=== PATIENT | male | born 1985 | race Caucasian/White ===

== ENCOUNTER 2019-07-30 07:52 | Emergency (ER) | payer OTHER ==
[~2019-07-30] VITALS: Ht 185.4 cm; Wt 70.4 kg
[2019-07-30] MEDS ORDERED: NS IV 1000 ML 1,000 ML IV SCH (08:15)
[2019-07-30] MEDS ORDERED: KETOROLAC 30 MG/ML VIAL IVP ONE (08:15)
[2019-07-30] MEDS ORDERED: ONDANSETRON 4 MG/2 ML (SDV) Z0FRAN IVP ONE (08:15)
[2019-07-30 08:24] LABS: HEMATOCRIT 42 % (40-54); MEAN CORPUSCULAR HEMOGLOBIN 30 PG (25-34); WHITE BLOOD COUNT 7.5 10^3/uL (4.3-11.0)
[2019-07-30 08:25] LABS: BASOPHILS # (AUTO) 0.1 10^3/uL (0.0-0.1); BASOPHILS % (AUTO) 1 % (0-10); EOSINOPHILS # (AUTO) 0.1 10^3/uL (0.0-0.3); EOSINOPHILS % (AUTO) 1 % (0-10); LYMPHOCYTES # (AUTO) 3.3 X 10^3 (1.0-4.0); LYMPHOCYTES % (AUTO) 44 % (12-44); MEAN CORPUSCULAR HGB CONC 34 G/DL (32-36); MEAN CORPUSCULAR VOLUME 91 FL (80-99); MEAN PLATELET VOLUME 9.9 FL (7.4-10.4); MONOCYTES # (AUTO) 0.7 X 10^3 (0.0-1.0); MONOCYTES % (AUTO) 9 % (0-12); NEUTROPHILS # (AUTO) 3.3 X 10^3 (1.8-7.8); NEUTROPHILS % (AUTO) 45 % (42-75); PLATELET COUNT 297 10^3/uL (130-400); RED CELL DISTRIBUTION WIDTH 12.9 % (10.0-14.5)
[2019-07-30 08:25] LABS: CLARITY,URINE CLEAR; COLOR,URINE YELLOW
[2019-07-30 08:26] LABS: BACTERIA,URINE NEGATIVE /HPF; BILIRUBIN,URINE NEGATIVE (NEGATIVE); GLUCOSE, URINE (UA) NEGATIVE (NEGATIVE); KETONES,URINE NEGATIVE (NEGATIVE); LEUKOCYTE ESTERASE ,URINE NEGATIVE (NEGATIVE); NITRITE,URINE NEGATIVE (NEGATIVE); PH,URINE 7.5 (5-9); PROTEIN,URINE NEGATIVE (NEGATIVE); RBC,URINE 25-50 /HPF; WBC,URINE RARE /HPF
--- NOTE | 2019-07-30 08:38 | Diagnostic Imaging Report ---
PROCEDURE: CT urinary tract, rule out kidney stone. TECHNIQUE: Multiple contiguous axial images were obtained through the abdomen and pelvis without the use of intravenous contrast. Auto Exposure Controls were utilized during the CT exam to meet ALARA standards for radiation dose reduction. INDICATION: Pain in the lower left abdomen and right abdomen radiating to the back. History of kidney stones. COMPARISON: None. FINDINGS: The lung bases are clear. The heart is normal in size. There is no pericardial effusion. The liver demonstrates no focal lesions. The spleen appears normal. The pancreas is normal. The adrenal glands appear normal. There is moderate right hydroureteronephrosis caused by an obstructing 3 mm calculus at the right ureterovesicular junction. There is a nonobstructing calculus in the inferior right kidney measuring 3 mm as well. The left kidney demonstrates no calculi. Multiple phleboliths are seen in the pelvis. The urinary bladder is decompressed. The bowel loops are nondistended without obstruction. The appendix is normal. No free fluid or free air is seen. There are nonspecific irregular calcifications in the prostate gland. The aorta is normal in caliber. Scattered mesenteric lymph nodes are seen which do not appear enlarged. No acute osseous abnormality is seen. IMPRESSION: Obstructing 3 mm calculus at the right ureterovesicular junction causing moderate right hydroureteronephrosis. Dictated by: Dictated on workstation # [id number]
[2019-07-30 08:40] LABS: BUN/CREATININE RATIO 15; CARBON DIOXIDE 23 MMOL/L (21-32); CHLORIDE 101 MMOL/L (98-107); CREATININE SERUM 1.08 MG/DL (0.60-1.30); GFR ESTIMATED > 60; SODIUM 139 MMOL/L (135-145)
[2019-07-30 08:41] LABS: ALANINE AMINOTRANSFERASE 20 U/L (0-55); ALBUMIN 4.9 GM/DL (3.2-4.5); ALKALINE PHOSPHATASE 70 U/L (40-136); BILIRUBIN,TOTAL 0.6 MG/DL (0.1-1.0); CALCIUM 9.2 MG/DL (8.5-10.1); GLUCOSE 138 MG/DL (70-105)
[2019-07-30] MEDS ORDERED: fentaNYL INJECTION 100 MCG/2 ML AMP IVP ONE (08:45)
[2019-07-30] MEDS ORDERED: HYDR-83 PO (08:50)
[2019-07-30] MEDS ORDERED: TMSL.4C PO (08:50)
--- NOTE | 2019-07-30 08:51 | ED Back Pain ---
General Chief Complaint: Back Problems Stated Complaint: RT FLANK/ABD PAIN Nursing Triage Note: Patient presents to the ED with c/o of severe right flank pain and right lower abdominal pain. He states that the pain woke him up around 6am this morning. He reports nausea and severe pain. He states he has had kidney stones in the past but never anything this severe. Nursing Sepsis Screen: No Definite Risk History of Present Illness Date Seen by Provider: Jul 30, 2019 Time Seen by Provider: 08:10 Initial Comments Sudden onset of Right back and flank pain this morning when he awoke. Hx of kidney stones, but this feels different. Pain sudden and severe. Associated nausea and vomiting. Otherwise, no recent illness. No sick contacts. No recent travel. Pain radiates from back to lower abdomen- primarily R sided. No pain w urination or observed blood in urine. Allergies and Home Medications Allergies Coded Allergies: No Known Drug Allergies (Unverified , 07/30/19) Home Medications Hydrocodone/Acetaminophen 1 Each Tablet, 1 EACH PO Q4H Prescribed by: JOHN GOMEZ on 07/30/19 0850 Tamsulosin HCl 0.4 Mg Cap, 0.4 MG PO DAILY Prescribed by: JOHN GOMEZ on 07/30/19 0850 Patient Home Medication List Home Medication List Reviewed: Yes Review of Systems Constitutional: see HPI; No fever, No malaise, No weakness Respiratory: No cough, No short of breath Cardiovascular: No chest pain, No palpitations Gastrointestinal: abdominal pain; No constipation, No diarrhea, No loss of appetite; nausea, vomiting Genitourinary: see HPI; No decreased output, No dysuria, No frequency, No hematuria, No incontinence, No nocturia, No pain Musculoskeletal: back pain; No joint pain Skin: no symptoms reported Past Mruhnfu-Cpkxbw-Iorrmn Hx Past Med/Social Hx: Reviewed Nursing Past Med/Soc Hx Patient Social History Alcohol Use: Denies Use Recreational Drug Use: No Smoking Status: Never a Smoker 2nd Hand Smoke Exposure: No Recent Foreign Travel: No Contact w/Someone Who Travel: No Recent Infectious Disease Expo: No Recent Hopitalizations: No Physical Abuse: No Sexual Abuse: No Mistreated: No Fear: No Seasonal Allergies Seasonal Allergies: No Past Medical History Surgeries: No Respiratory: No Cardiac: No Neurological: No Genitourinary: Yes Kidney Stones Gastrointestinal: No Musculoskeletal: No Endocrine: No HEENT: No Cancer: No Psychosocial: No Integumentary: No Blood Disorders: No Physical Exam Vital Signs Vital Signs - First Documented 07/30/19 07:59 Temp 36.7 Pulse 58 Resp 20 B/P (MAP) 133/82 (99) Pulse Ox 100 O2 Delivery Room Air Capillary Refill : Less Than 3 Seconds Height, Weight, BMI Height: '" Weight: lbs. oz. kg; 20.00 BMI Method: General Appearance: Mild Distress (pain) Cardiovascular: Regular Rate, Rhythm, No Edema, No Gallop Respiratory: Chest Non Tender, Lungs Clear Gastrointestinal: Non Tender, Soft; No Distended, No Guarding Back: No Vertebral Tenderness, CVA Tenderness (R); No Decreased Range of Motion, No Vertebral Tenderness Neurologic/Psychiatric: Alert, Oriented x3 Progress/Results/Core Measures Results/Orders Lab Results Laboratory Tests Test 07/30/19 08:08 07/30/19 08:10 Range/Units White Blood Count 7.5 4.3-11.0 10^3/uL Red Blood Count 4.61 4.35-5.85 10^6/uL Hemoglobin 14.0 13.3-17.7 G/DL Hematocrit 42 40-54 % Mean Corpuscular Volume 91 80-99 FL Mean Corpuscular Hemoglobin 30 25-34 PG Mean Corpuscular Hemoglobin Concent 34 32-36 G/DL Red Cell Distribution Width 12.9 10.0-14.5 % Platelet Count 297 130-400 10^3/uL Mean Platelet Volume 9.9 7.4-10.4 FL Neutrophils (%) (Auto) 45 42-75 % Lymphocytes (%) (Auto) 44 12-44 % Monocytes (%) (Auto) 9 0-12 % Eosinophils (%) (Auto) 1 0-10 % Basophils (%) (Auto) 1 0-10 % Neutrophils # (Auto) 3.3 1.8-7.8 X 10^3 Lymphocytes # (Auto) 3.3 1.0-4.0 X 10^3 Monocytes # (Auto) 0.7 0.0-1.0 X 10^3 Eosinophils # (Auto) 0.1 0.0-0.3 10^3/uL Basophils # (Auto) 0.1 0.0-0.1 10^3/uL Sodium Level 139 135-145 MMOL/L Potassium Level 4.0 3.6-5.0 MMOL/L Chloride Level 101 98-107 MMOL/L Carbon Dioxide Level 23 21-32 MMOL/L Anion Gap 15 H 5-14 MMOL/L Blood Urea Nitrogen 16 7-18 MG/DL Creatinine 1.08 0.60-1.30 MG/DL Estimat Glomerular Filtration Rate > 60 BUN/Creatinine Ratio 15 Glucose Level 138 H 70-105 MG/DL Calcium Level 9.2 8.5-10.1 MG/DL Corrected Calcium 8.5-10.1 MG/DL Total Bilirubin 0.6 0.1-1.0 MG/DL Aspartate Amino Transf (AST/SGOT) 23 5-34 U/L Alanine Aminotransferase (ALT/SGPT) 20 0-55 U/L Alkaline Phosphatase 70 40-136 U/L Total Protein 7.0 6.4-8.2 GM/DL Albumin 4.9 H 3.2-4.5 GM/DL Urine Color YELLOW Urine Clarity CLEAR Urine pH 7.5 5-9 Urine Specific Thornton 1.020 1.016-1.022 Urine Protein NEGATIVE NEGATIVE Urine Glucose (UA) NEGATIVE NEGATIVE Urine Ketones NEGATIVE NEGATIVE Urine Nitrite NEGATIVE NEGATIVE Urine Bilirubin NEGATIVE NEGATIVE Urine Urobilinogen 0.2 < = 1.0 MG/DL Urine Leukocyte Esterase NEGATIVE NEGATIVE Urine RBC (Auto) 3+ H NEGATIVE Urine RBC 25-50 H /HPF Urine WBC RARE /HPF Urine Squamous Epithelial Cells NONE /HPF Urine Crystals NONE /LPF Urine Bacteria NEGATIVE /HPF Urine Casts NONE /LPF Urine Mucus SMALL H /LPF Urine Culture Indicated NO My Orders Orders - JOHN GOMEZ DO Ed Iv/Invasive Line Start (07/30/19 08:05) Cbc With Automated Diff (07/30/19 08:05) Comprehensive Metabolic Panel (07/30/19 08:05) Urinalysis (07/30/19 08:05) Ns Iv 1000 Ml (Sodium Chloride 0.9%) (07/30/19 08:15) Ketorolac Injection (Toradol Injection) (07/30/19 08:15) Ondansetron Injection (Zofran Injectio (07/30/19 08:15) Ct Abd/Pelvis Wo(Kidney Stone) (07/30/19 08:05) Fentanyl Injection (Sublimaze Injection (07/30/19 08:45) Medications Given in ED Current Medications Medications Dose Ordered Sig/Lakeisha Route Start Time Stop Time Status Last Admin Dose Admin Fentanyl Citrate 75 mcg ONCE ONCE IVP 07/30/19 08:45 07/30/19 08:46 DC 07/30/19 08:39 75 MCG Ketorolac Tromethamine 30 mg ONCE ONCE IVP 07/30/19 08:15 07/30/19 08:16 DC 07/30/19 08:16 30 MG Ondansetron HCl 4 mg ONCE ONCE IVP 07/30/19 08:15 07/30/19 08:16 DC 07/30/19 08:15 4 MG Vital Signs/I&O 07/30/19 07:59 Temp 36.7 Pulse 58 Resp 20 B/P (MAP) 133/82 (99) Pulse Ox 100 O2 Delivery Room Air Blood Pressure Mean: 99 Progress Progress Note : Progress Note some improvement w toradol and Fentanyl IV (). Discussed outpt mgmt and follow up if not improving w URO, to ER if worse. Departure Impression Primary Impression: Ureterolithiasis Disposition: HOME, SELF-CARE Condition: Improved Departure-Patient Inst. Referrals: TEQUILA INIGUEZ MD (PCP/Family) Primary Care Physician Patient Instructions: Kidney Stone Diet, Kidney Stones (DC), Kidney Stones in Adults Scripts Tamsulosin HCl (Flomax) 0.4 Mg Cap 0.4 MG PO DAILY, #7 CAP Prov: JOHN GOMEZ DO 07/30/19 Hydrocodone/Acetaminophen (Hydrocodone-Acetamin 5-325 mg) 1 Each Tablet 1 EACH PO Q4H for Abdominal Pain, #10 TAB Prov: LUCHOSTINEJOHN DO 07/30/19 ROCLAUSTINEMELYJOHN L DO Jul 30, 2019 08:50
[2019-07-30 09:05] VITALS: BP 170/90
== END 2019-07-30 09:02 | disposition home or self-care (01) ==
LOC: ER FS 07:55
DX: N13.2 Hydronephrosis with renal and ureteral calculous obstruction (principal)
CPT/HCPCS: 36415; 74176; 80053; 81000; 85025; 96374; 96375